=== PATIENT | female | born 1990 | race Caucasian/White ===

== ENCOUNTER 2016-04-02 20:19 | Emergency (ER) | payer BC ==
[~2016-04-02] VITALS: Ht 172.7 cm; Wt 79.4 kg
[2016-04-02 20:26] VITALS: TEMP 36.7; Ht 172.7 cm; Wt 79.4 kg
[2016-04-02] MEDS ORDERED: ASPI81TA28 PO (22:01)
[2016-04-02 22:51] VITALS: BP 105/71; PULSE 64; O2SAT 97
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
== END 2016-04-02 22:56 | disposition home or self-care (01) ==
LOC: C.EDB 20:22 → C.EDD 22:56
DX: S61.251A Open bite of left index finger without damage to nail, initial encounter (principal); Z79.82 Long term (current) use of aspirin; W53.81XA Bitten by other rodent, initial encounter; Y92.000 Kitchen of unspecified non-institutional (private) residence as the place of occurrence of the external cause; Y99.8 Other external cause status

== ENCOUNTER 2018-07-15 05:29 | Inpatient (IN) ==
--- NOTE | 2018-07-14 22:13 | History and Physical Report ---
DATE OF ADMISSION: 07/15/2018 CHIEF COMPLAINT: Planned section. HISTORY OF PRESENT ILLNESS: A 27-year-old 1, para 0 at 39+ weeks estimated gestational age with an EDC of 07/17/2018, who will present in the morning for planned section for breech presentation. The patient underwent an attempt at external cephalic version approximately 2 days ago that was unsuccessful. She is found to be roxanne breech earlier this week. She now accepts planned section. She denies any vaginal bleeding, leaking, or pain. She reports good movement. course has been complicated by, 1. GBS positive. 2. Heterozygous factor V Leiden mutation with a plan for hematology from December of 2017 for Lovenox if she has a . The labs include a blood type of A positive, rubella immune, and group B strep positive. OBSTETRIC HISTORY AND GYNECOLOGIC HISTORY: 1. History of positive HPV with colposcopy. No STDs. PAST MEDICAL HISTORY: Heterozygous factor V Leiden. PAST SURGICAL HISTORY: Partial parotidectomy in 2014, tubes in her ears. ALLERGIES: LORABID WHICH LEADS TO HIVES. MEDICATIONS: vitamins, Benadryl, Tylenol, iron, and Claritin. SOCIAL HISTORY: No tobacco, alcohol or street drug use. FAMILY HISTORY: Noncontributory. REVIEW OF SYSTEMS: Per HPI. PHYSICAL EXAMINATION: VITAL SIGNS: Height 5 feet 7 inches, weight 220 pounds. The vital signs are stable. GENERAL: She is a pleasant female, well-developed, well-nourished in no acute distress. HEART: Regular rate and rhythm. LUNGS: Clear to auscultation bilaterally. NECK: Without thyromegaly or lymphadenopathy. ABDOMEN: Soft, gravid, and nontender, term fundal height, breech presentation by ultrasound today. Normal heart tones. EXTREMITIES: No significant edema. ASSESSMENT: 1. A 39+ week intrauterine . 2. breech presentation. 3. Failed external cephalic version. PLAN: The patient will be admitted on 07/15/2018 for planned section for breech presentation. The patient is aware of her preop and postop instructions and course. She is aware of the risks, alternatives, complications, and signed a consent form. We will proceed with primary section in the morning. In the morning, she will have her laboratory testing as well. SONI
[2018-07-15] MEDS ORDERED: CEFAZOLIN 3,000 MG in DEXTROSE 5% 50 ML IV SCH (06:00)
[2018-07-15] MEDS ORDERED: LACTATED RINGER'S 1,000 ML IV SCH ×2 (06:00→06:59)
[2018-07-15] MEDS ORDERED: CITRIC ACID/SODIUM CITRATE 15 ML UDC PO SCH ×2 (06:00)
[2018-07-15 06:32] LABS: Basophils # (auto) 0.01 K/uL (0-0.2); Basophils % (auto) 0.1 %; Eosinophils # (auto) 0.24 K/uL (0-0.5); Eosinophils % (auto) 3.2 %; Hematocrit (blood only) 34.2 % (37-47); Hemoglobin 11.7 g/dL (12.0-16.0); Immature Granulocytes # (auto) 0.03 K/uL (0.00-0.02); Immature Granulocytes % (auto) 0.4 %; Lymphocytes # (auto) 1.54 K/uL (1.2-3.4); Lymphocytes % (auto) 20.8 %; Mean Platelet Volume 11.8 fL (7.4-10.4); Monocytes # (auto) 0.42 K/uL (0.11-0.59); Monocytes % (auto) 5.7 %; Neutrophils # (auto) 5.17 K/uL (1.4-6.5); Neutrophils % (auto) 69.8 %; Platelet Count 183 K/uL (130-400); RDW Coefficient of Variation 13.9 % (11.5-14.5); White Blood Count 7.41 K/uL (4.8-10.8)
[2018-07-15 06:41] LABS: Mean Corpuscular Hgb Conc 34.2 g/dL (32-36)
--- NOTE | 2018-07-15 07:22 | History & Physical Bridge Note ---
Date of Service July 15, 2018 History & Physical Bridge Note I have examined the patient, reviewed the History & Physical and in the interval since the performance of the History & Physical I have noted the following changes of clinical significance: no changes noted
[2018-07-15] MEDS ORDERED: fentaNYL citrate 100 MCG/2 ML VIAL ONE (07:57)
[2018-07-15] MEDS ORDERED: MoRPHine SULFATE PF 1 MG/ML 10 ML AMP/VIAL ONE (07:57)
--- NOTE | 2018-07-15 08:02 | Anesthesiology Consultation ---
Date of Service July 15, 2018 Assessment & Plan (1) Encounter for pre-operative examination: Chart Review Chart Review: Acceptable Risk for Surgery and Patient NOT seen in Pre Admission Testing Consults Requested none History Surgery Operation Date: 07/15/18 07:30 Proposed Procedures p Section in LD - Nanda Flores MD, FACOG Height/Weight Height: 5 ft 8 in Weight: 99.79 kg Allergies Allergy/AdvReac Type Severity Reaction Status Date / Time loracarbef [From Lorabid] Allergy Intermediate Hives Verified 07/13/18 12:35 Medications Home Medications Medication Instructions Recorded Confirmed Last Taken acetaminophen [Tylenol] 325 mg PO QID PRN 07/12/18 07/13/18 Unknown diphenhydramine HCl [Benadryl] 25 mg PO TID PRN 07/12/18 07/13/18 07/11/18 ferrous sulfate 325 mg PO DAILY 07/12/18 07/13/18 07/11/18 loratadine [Claritin] 10 mg PO DAILY 07/12/18 07/13/18 07/11/18 vit-iron fum-folic ac 1 tab PO DAILY 07/12/18 07/13/18 07/11/18 [ Vitamin] ranitidine HCl 150 mg PO DAILY PRN 07/13/18 07/13/18 Unknown Active Medications Generic Name Dose Route Start Last Admin Trade Name Freq PRN Reason Stop Dose Admin Lactated Ringer's 1,000 mls @ 999 mls/hr 07/16/18 06:00 07/15/18 05:45 Lr IV 07/16/18 07:00 999 mls/hr .Q1H1M TIMOTHY Administration NPO Date Last Intake of Fluids: 07/14/18 Time Last Intake of Fluids: 22:00 Date Last Intake of Solids: 07/14/18 Time Last Intake of Solids: 21:00 Past Medical History Medical History Asthma EXERCISE INDUCED A CHILD (NO CURRENT PROBLEMS) GBS (group B Streptococcus carrier), +RV culture, 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 Heterozygous factor V Leiden mutation Exercise / Class Metabolic Activity II 4-5 Yardwork/Stairs/Walk up hill Past Family History Family History Father Family hx of colon cancer Past Surgical History Surgical History History of placement of ear tubes Hx of parotidectomy CYST REMOVED (BENIGN) Past Anesthesia History No Hx of Anesthesia Complications and No Family Hx of Anesthesia Complications History of PONV No Hx of PONV and No Hx of Motion Sickness Social History Smoking Status: Never smoker Do You Dip or Chew Tobacco: No Hx Alcohol Use: No Hx Substance Use: No substance use type: does not use Physical Exam Vital Signs Last Vital Signs Temp 36.5 C 07/15/18 05:39 Pulse 93 H 07/15/18 07:56 Resp 18 07/15/18 07:30 BP 129/79 07/15/18 05:37 Pulse Ox 100 07/15/18 07:56 Testing Laboratory Results 07/15/18 06:19 07/15/18 06:19 Blood Type A Positive Antibody Screen NEGATIVE
[2018-07-15] MEDS ORDERED: OXYTOCIN 10 UNITS/ML VIAL ONE ×3 (08:08)
[2018-07-15] MEDS ORDERED: NALOXONE HCL 1 MG in SODIUM CHLORIDE 0.9% 1000ML 1,000 ML IV PRN (08:24)
[2018-07-15] MEDS ORDERED: MoRPHine SULFATE 2 MG/ML CARP IV PRN (08:24)
[2018-07-15] MEDS ORDERED: LACTATED RINGER'S 500 ML IV PRN (08:24)
[2018-07-15] MEDS ORDERED: DiphenhydrAMINE HCL 50 MG/ML VIAL IV PRN ×2 (08:24→09:44)
[2018-07-15] MEDS ORDERED: MoRPHine SULFATE PF 1 MG/ML 10 ML AMP/VIAL INT SPINAL ONE (08:24)
[2018-07-15] MEDS ORDERED: ONDANSETRON INJ 2 MG/ML 2 ML VIAL IV PRN (08:24)
[2018-07-15] MEDS ORDERED: ePHEDrine sulfate 50 MG/ML AMP IV PRN (08:24)
[2018-07-15] MEDS ORDERED: NALBUPHINE HCL INJ 10 MG/ML AMP IV PRN (08:24)
[2018-07-15] MEDS ORDERED: NALOXONE HCL 0.4 MG/1 ML VIAL/CARP IV PRN (08:24)
[2018-07-15] MEDS ORDERED: NALOXONE HCL 0.08 MG in SYRINGE 1.8 ML IV PRN (08:24)
[2018-07-15] MEDS ORDERED: DC INTRASPINAL MORPHINE SCH (08:30)
[2018-07-15] MEDS ORDERED: SODIUM CHLORIDE 0.9% 1000ML 1,000 ML IV SCH (08:30)
[2018-07-15] MEDS ORDERED: NO NARCOTICS OR SEDATIVES SCH (08:30)
[2018-07-15] MEDS ORDERED: PHENYLEPHRINE 100MCG/ML 5ML SYR ONE (08:37)
--- NOTE | 2018-07-15 09:07 | Post Operative Brief Note ---
Immediate Post Op Note v1 Date of Surgery July 15, 2018 Pre & Post Diagnosis Operation Date: 07/15/18 07:30 Pre-Op Diagnosis: 1. A 39+ week intrauterine . 2. breech presentation. 3. Failed external cephalic version. Post-Op Diagnosis: same as pre-op Procedure Operation Date: 07/15/18 07:30 Actual Procedures p Primary Low Transverse Section in for breech presentation, delivery of live male child at 0833 - Nanda Flores MD, FACOG Surgeon Nanda Flores MD, FACOG Supervisor Education Divya Estimated Blood Loss 500 Findings Consistent with Post-Op Diagnosis viable male apgars 9,9, weight 9# 2 oz. normal uterus tubes and ovaries bilaterally, external uterus with slight heart shape but cavity normal. Fluids 1200 Drains Hurtado Catheter (applied after anesthesia) Anesthesia Type Spinal Complications none Disposition Accompanied Patient To Recovery: No Disposition: L&D
--- NOTE | 2018-07-15 09:21 | Anesthesiology Progress Note ---
Date of Service July 15, 2018 Anesthesia Post Procedure Vital Signs Vital Signs: Temp Pulse Resp BP Pulse Ox 07/15/18 09:19 76 100 07/15/18 09:15 81 108/65 07/15/18 09:14 80 100 07/15/18 07:56 93 H 100 07/15/18 07:54 82 91 07/15/18 07:51 89 100 07/15/18 07:46 82 99 07/15/18 07:41 83 100 07/15/18 07:30 18 07/15/18 05:39 36.5 C 18 07/15/18 05:37 89 129/79 Transfer of Care Handoff Completed per policy Notes Mental Status: alert / awake / arousable Patient Amnestic to Procedure: Yes Nausea / Vomiting: adequately controlled Pain: adequately controlled Airway Patency, RR, SpO2: stable & adequate BP & HR: stable & adequate Hydration State: stable & adequate Neuraxial Anesthesia: was administered and sensory block is resolving Anesthetic Complications: no major complications apparent and Pt Satisfied with anesthetic care
--- NOTE | 2018-07-15 09:40 | Operative Report ---
DATE OF OPERATION: 07/15/2018 PREOPERATIVE DIAGNOSES: 1. A 39-week intrauterine . 2. breech presentation. 3. Failed external cephalic version. POSTOPERATIVE DIAGNOSES: 1. A 39-week intrauterine . 2. breech presentation. 3. Failed external cephalic version. PROCEDURE: Primary low transverse section. SURGEON: Nanda Flores MD. ACCOUNTS PAYABLE ANALYST: Elisabet Stokes MD INTRAVENOUS FLUIDS: 1200 mL. ESTIMATED BLOOD LOSS: 500 mL. ANESTHESIA: Spinal with Duramorph. FINDINGS: Viable male , Apgars 9 and 9, weight 9 pounds 2 ounces. Uterus with a small sweetheart shape externally, but internal cavity palpated to be normal. Normal tubes and ovaries bilaterally. INDICATIONS: A 27-year-old 1, para 0 at 39+ weeks who presents for planned section due to breech presentation. Approximately 2 days ago, she did try an attempted external cephalic version and this was unsuccessful. She is now ready for her section. She does have a history of heterozygosity to factor V Leiden and we will plan Lovenox when appropriate. DESCRIPTION OF PROCEDURE: The patient was taken to the operating room and identified. Adequate spinal anesthesia was obtained, she was placed in the supine position with leftward tilt and prepped and draped in the usual sterile fashion. The knife was used to create a Pfannenstiel skin incision that was carried down to underlying layer of fascia. The fascia was nicked in the midline and this opening was extended laterally using Mariscal scissors. Milli clamps were placed in the superior and inferior aspects of the fascial incision, tenting it upwards and the underlying rectus muscles were dissected off of the overlying fascia both sharply and bluntly using Mariscal scissors. The rectus muscles were bluntly in the midline and the peritoneal cavity was bluntly entered into. This opening was stretched. A bladder blade was placed. The vesicouterine peritoneum was grasped with a Marry clamp and elevated. It was opened up into sharply and extended laterally and the bladder flap was created digitally. The bladder blade was replaced. A knife was used to create a hysterotomy that was then stretched. The amniotic sac was ruptured. The production drilling machine operator's hand was placed through the hysterotomy and the buttocks was elevated. The bladder blade was removed. With fundal pressure, the buttocks was delivered. The torso was then delivered with the legs and the arms were swept across the anterior midline. The head was flexed and delivered. The cord was clamped, and the nose and mouth were bulb suctioned. The cord was then doubly clamped and cut. The was taken to the awaiting pediatricians. Cord blood was obtained. Placenta was manually expressed. Uterus exteriorized and cleared of all clots and debris. The hysterotomy was reapproximated using 0 Vicryl in a running interlocking fashion followed by second imbricating layer for excellent hemostasis. A bleeding site in the midline was stitched with a [id number] of 2-0 Vicryl for excellent hemostasis. The pelvis was irrigated. The uterus was returned to the abdomen. The gutters were cleared of all clots and debris. The fascia was reapproximated in a running fashion using 0 Vicryl. The subcutaneous fat was copiously irrigated. The subcutaneous tissue was reapproximated using 2-0 chromic and the skin was closed in a subcuticular fashion using 4-0 Vicryl. All sponge, lap, needle counts were correct x2. The patient returned to recovery room in stable condition. I attest to the content of the Intraoperative Record and any orders documented therein. Any exception s are noted below.
[2018-07-15] MEDS ORDERED: HYDROCORTISONE ACETATE 25 MG SUPP PR PRN (09:44)
[2018-07-15] MEDS ORDERED: DIPHTHERIA/TETANUS/PERTUSSIS 0.5 ML SYR/VIAL IM ONE (09:44)
[2018-07-15] MEDS ORDERED: SUPERCREAM 0.870% 15 GM JAR EXT PRN (09:44)
[2018-07-15] MEDS ORDERED: BENZOCAINE 20% AER SPR 82.5 GM CAN EXT PRN (09:44)
[2018-07-15] MEDS: OXYTOCIN 20 UNITS in LACTATED RINGER'S 1,000 ML IV SCH ×2 (10:00→18:16)
[2018-07-15] MEDS: KETOROLAC 30 MG/ML VIAL IV PRN ×2 (10:42→23:40)
[2018-07-15] MEDS: SIMETHICONE 80 MG CHEW PO SCH ×3 (14:35→21:14)
[2018-07-15 15:29] LABS: Partial Thromboplastin Ratio 1.1; Partial Thromboplastin Time 29.6 Seconds (21.0-31.0); Prothrombin Time 10.2 Seconds (9.0-12.0)
[2018-07-15] MEDS: DOCUSATE SODIUM 100 MG CAP PO SCH (21:14)
[2018-07-16] MEDS ORDERED: KETOROLAC 30 MG/ML VIAL IV PRN (02:25)
[2018-07-16] MEDS ORDERED: OXYCODONE/ACETAMINOPHEN 5mg/325mg TAB PO PRN (02:25)
[2018-07-16] MEDS ORDERED: PROMETHAZINE HCL 25 MG in SODIUM CHLORIDE 0.9% 50 ML IV PRN (02:25)
[2018-07-16] MEDS ORDERED: MEPERIDINE HCL 50 MG/ML CARP IV PRN (02:25)
[2018-07-16] MEDS ORDERED: ONDANSETRON INJ 2 MG/ML 2 ML VIAL IV PRN (02:25)
[2018-07-16] MEDS ORDERED: LACTATED RINGER'S 1,000 ML IV SCH (06:00)
--- NOTE | 2018-07-16 06:50 | Obstetrical Progress Note ---
Date of Service <Paul Gaspar MD - Last Filed: 07/16/18 06:50> July 16, 2018 Assessment & Plan <Paul Gaspar MD - Last Filed: 07/16/18 06:50> (1) delivery delivered: Nanette Bueno is a 27yo who presented at 39+ for scheduled c/s for breech presentation now POD#1 - GBS+, blood type A+, RI - Feels well today. Eating well, ambulating well. Has not voided yet, campos removed one hour ago. - well without difficulty - Surgical incision well healing - Pain well controlled with ibuprofen 600mg Q4H PRN. - Will start enoxaparin 40mg subQ this morning for factor V carrier status, will require prophylactic dosing for at least one month. - Routine post-op care - After discharge will have [address] Flores. Subjective <Paul Gaspar MD - Last Filed: 07/16/18 06:50> Ambulation: ambulating normally Voiding: voiding difficulty (campos removed one hour ago, has not voided yet) Passing Gas:: Yes Diet Tolerance:: regular diet Lochia:: Moderate Feeding Type:: breast feeding Current Pain Level(1-10): 3 Review of Systems Denies fever, chills, sweats Denies shortness of breath, difficulty breathing, chest pain, palpitations, chest pressure. Denies breast pain. Denies dysuria. Denies headache. Physical Exam <Paul Gaspar MD - Last Filed: 07/16/18 06:50> General: Alert, oriented. No acute distress. Cardiac: Regular rate and rhythm, no murmurs/rubs/gallops. Respiratory: Clear to auscultation anterior and posteriorly, no wheezes/rales/rhonchi. No increased work of breathing. Symmetrical chest rise. No respiratory distress. Abdomen: Soft, nontender, nondistended. Bowel sounds present. Surgical dressing removed. Surgical incision clean, dry, intact without dehiscence, warmth, hematoma, discharge, or swelling. Uterus: Uterine fundus firm, palpable at-1cm below umbilicus. Lower Extremities: No lower extremity edema or swelling. No deep calf pain. Lewis's negative bilaterally. Results & Data <Paul Gaspar MD - Last Filed: 07/16/18 06:50> Vital Signs (Past 12 Hours) Vital Signs Temp Pulse Resp BP Pulse Ox 07/16/18 04:00 36.7 C 90 18 130/78 07/16/18 02:00 18 99 07/16/18 01:30 20 97 07/16/18 00:30 18 99 07/15/18 23:30 36.4 C L 78 20 112/64 99 07/15/18 22:22 18 98 07/15/18 21:20 18 99 07/15/18 20:15 18 99 07/15/18 19:25 37.0 C 81 18 113/76 100 <Erika Anton MD, FACOG - Last Filed: 07/16/18 07:57> Co-Signing Physician Notes Resident Physician Supervision Note: I interviewed and examined the patient. Discussed with Dr. Gaspar and agree with findings and plan as documented in the note. Any exceptions or clarifications are listed here: Doing well. routine PPD 1 . Start lovenox prophylaxis today. Documented By: Erika Anton MD, FACOG Resident Activity Tracking <Paul Gaspar MD - Last Filed: 07/16/18 06:50> Resident Involvement: Resident Care Provided Care Provided: Adult Hospital Medicine
[2018-07-16 07:34] LABS: Basophils # (auto) 0.01 K/uL (0-0.2); Basophils % (auto) 0.1 %; Eosinophils # (auto) 0.16 K/uL (0-0.5); Hematocrit (blood only) 31.9 % (37-47); Hemoglobin 11.1 g/dL (12.0-16.0); Immature Granulocytes # (auto) 0.02 K/uL (0.00-0.02); Immature Granulocytes % (auto) 0.2 %; Lymphocytes # (auto) 0.94 K/uL (1.2-3.4); Lymphocytes % (auto) 11.5 %; Mean Corpuscular Hgb Conc 34.8 g/dL (32-36); Mean Corpuscular Volume 89.9 fL (80-100); Mean Platelet Volume 10.9 fL (7.4-10.4); Monocytes # (auto) 0.46 K/uL (0.11-0.59); Monocytes % (auto) 5.6 %; Neutrophils % (auto) 80.6 %; Platelet Count 168 K/uL (130-400); RDW Coefficient of Variation 13.9 % (11.5-14.5); RDW Standard Deviation 45.8 fL (36.4-46.3); Red Blood Count 3.55 M/uL (4.2-5.4); White Blood Count 8.19 K/uL (4.8-10.8)
[2018-07-16] MEDS ORDERED: HYDROCORTISONE 1% CRM 30 GM TUBE EXT PRN (07:54)
[2018-07-16] MEDS: DOCUSATE SODIUM 100 MG CAP PO SCH ×2 (08:12→20:24)
[2018-07-16] MEDS: PRENATAL VITAMIN 1 TAB PO SCH (08:12)
[2018-07-16] MEDS: IBUPROFEN 600 MG TAB PO PRN ×3 (08:13→20:24)
[2018-07-16] MEDS: SIMETHICONE 80 MG CHEW PO SCH ×3 (08:14→20:25)
[2018-07-16 08:18] LABS: Creatinine Clr Calc Pharmacy 205.1 ml/min; Est GFR (African American) > 150.0; Est GFR (Non-African American) 130.8
[2018-07-16] MEDS: ENOXAPARIN INJ 40 MG/0.4 ML SYR SQ SCH (09:00)
--- NOTE | 2018-07-16 10:12 | Anesthesiology Progress Note ---
Date of Service July 16, 2018 Anesthesia Post Procedure Vital Signs Vital Signs: Temp Pulse Pulse Pulse Resp BP BP 07/16/18 08:45 36.6 C 90 20 07/16/18 04:00 36.7 C 90 18 07/16/18 02:00 18 07/16/18 01:30 20 07/16/18 00:30 18 07/15/18 23:30 36.4 C L 78 20 07/15/18 22:22 18 07/15/18 21:20 18 07/15/18 20:15 18 07/15/18 19:25 37.0 C 81 18 07/15/18 18:15 18 07/15/18 17:15 18 07/15/18 16:05 36.9 C 75 18 07/15/18 15:15 18 07/15/18 14:15 36.8 C 75 20 07/15/18 13:15 36.5 C 77 18 122/75 07/15/18 12:00 37.4 C 78 16 126/64 07/15/18 11:15 37.2 C 82 18 114/76 07/15/18 10:59 84 07/15/18 10:54 79 07/15/18 10:50 37.1 C 78 18 07/15/18 10:49 78 07/15/18 10:47 77 122/68 07/15/18 10:44 76 07/15/18 10:39 83 07/15/18 10:37 88 07/15/18 10:34 87 07/15/18 10:29 81 07/15/18 10:24 80 07/15/18 10:19 82 07/15/18 10:16 82 121/72 07/15/18 10:15 36.5 C 76 16 07/15/18 10:14 90 BP Pulse Ox 07/16/18 08:45 112/71 98 07/16/18 04:00 130/78 07/16/18 02:00 99 07/16/18 01:30 97 07/16/18 00:30 99 07/15/18 23:30 112/64 99 07/15/18 22:22 98 07/15/18 21:20 99 07/15/18 20:15 99 07/15/18 19:25 113/76 100 07/15/18 18:15 100 07/15/18 17:15 100 07/15/18 16:05 125/68 100 07/15/18 15:15 100 07/15/18 14:15 124/74 100 07/15/18 13:15 100 07/15/18 12:00 99 07/15/18 11:15 98 07/15/18 10:59 07/15/18 10:54 07/15/18 10:50 07/15/18 10:49 100 07/15/18 10:47 07/15/18 10:44 07/15/18 10:39 100 07/15/18 10:37 94 07/15/18 10:34 07/15/18 10:29 100 07/15/18 10:24 94 07/15/18 10:19 100 07/15/18 10:16 07/15/18 10:15 100 07/15/18 10:14 98 Pain Intensity Lower Abdomen: Pain Intensity: 3 Notes Mental Status: alert / awake / arousable and participated in evaluation Nausea / Vomiting: adequately controlled Pain: adequately controlled Airway Patency, RR, SpO2: stable & adequate BP & HR: stable & adequate Hydration State: stable & adequate Neuraxial Anesthesia: was administered and sensory block resolved Anesthetic Complications: no major complications apparent and Pt Satisfied with anesthetic care Notes: Pt denies headache at this time.
[2018-07-17] MEDS: IBUPROFEN 600 MG TAB PO PRN ×4 (00:15→15:21)
[2018-07-17 06:26] LABS: Hematocrit (blood only) 31.6 % (37-47); Hemoglobin 10.7 g/dL (12.0-16.0)
--- NOTE | 2018-07-17 07:53 | Obstetrical Progress Note ---
Date of Service July 17, 2018 Assessment & Plan (1) delivery delivered: doing well, stable, , Subjective Ambulation: ambulating normally Voiding: no voiding problems Passing Gas:: Yes Diet Tolerance:: regular diet Lochia:: Small Feeding Type:: breast feeding pain well controlled. aware she needs to use lovenox for 6 wks. Physical Exam Constitutional WD/WN, vitals as above Respiratory normal respiratory effort, lungs clear to auscultation Cardiovascular Rate/Rhythm: regular rate and regular rhythm Gastrointestinal (Abdomen) ff 2 down, incision c/d/i Musculoskeletal nt calves Results & Data Vital Signs (Past 12 Hours) Vital Signs Temp Pulse Resp BP 07/17/18 00:10 36.6 C 72 18 120/71
[2018-07-17] MEDS: SIMETHICONE 80 MG CHEW PO SCH (08:52)
[2018-07-17] MEDS: PRENATAL VITAMIN 1 TAB PO SCH (08:52)
[2018-07-17] MEDS: DOCUSATE SODIUM 100 MG CAP PO SCH (08:53)
[2018-07-17] MEDS: ENOXAPARIN INJ 40 MG/0.4 ML SYR SQ SCH (08:54)
--- NOTE | 2018-07-17 22:35 | Discharge Summary ---
Date of Service Day of admission: July 15, 2018. Day of discharge: July 17, 2018 Admission HPI Per Admitting Provider Admission diagnoses: 1. 39 week intrauterine 2. breech presentation 3. Failed external cephalic version Discharge diagnoses: same. Discharge Data Consultations 07/15/18 05:59 Consult Anesthesiology Stat Procedures Performed Operation Date: 07/15/18 07:30 Actual Procedures p Primary Low Transverse Section, delivery of live male child at 0833 - Nanda Flores MD, [facility] Course (1) 39 weeks gestation of : (2) Factor V Leiden mutation affecting : (3) Breech presentation of fetus: 27yo at 39+ weeks ega who presented to L&D on day of admission for planned section. The baby was found to breech earlier in the week and patient attempted external cephalic version that was unsucessful. She now presents for planned section. The above procedure was performed without incident. The patient's postoperative course and recovery was unremarkable. On her pod #2 she was stable for discharge home and desired discharge. Her pain was well controlled on oral medications. She was voiding and ambulating without difficulty and eating a regular diet. She was her . She had discharge instructions reviewed and due to her Factor V Leiden history, heterozygote, was planned to have 6weeks of postoperative lovenox prophylaxis. S he had undergone a hematology consult during the that recommended this treatment if she underwent section. She was to followup in 6 weeks for checkup.
== END 2018-07-17 17:15 | disposition home or self-care (01) | DRG 787 ==
LOC: 4S1 05:29 → EDSTATUS 07:30 → 4N 11:23

== ENCOUNTER 2021-08-29 06:08 | Inpatient (IN) ==
--- NOTE | 2021-08-25 11:44 | History & Physical Report ---
Date of Service August 25, 2021 Assessment & Plan (1) 39 weeks gestation of : (2) Failed external cephalic version: (3) malpresentation: (4) Previous delivery affecting , antepartum: Plan Patient to be admitted on wednesday08/29/21. Currently planning repeat c/s due to persistent breech presentation and failed ECV. Unclear status at this time if ECV attempt to be repeated after consent, as will be determined based on favorability of the maternal cervix for induction. If cervix unfavorable the current thought is to not attempt ecv under epidural and instead proceed with the repeat c/s. Patient is prepared for this "to be determined" management as it is her who desires strongly but realizes limitations in her scenario. Collaboration with involved physicians and the patient has taken place. C/S consent reviewed and signed by patient. Routine preop, postop instructions and course reviewed. Risks, benefits and complications reviewed. History of Present Illness Chief Complaint: planned c/s if persistent breech Primary Care Provider: NO PCP 30yo at 39+wks penny presents to L&D for planned c/s if still persistent breech. She had attempted ECV but that failed. She was considering repeat attempt if cervix favorable on day of planned c/s under epidural but that was to be determi paulo at visit before planned c/s date. No labor s/sx. PNC c/b1. prior c/s for breech, desires , persistent breech thus far with this 2. +gbs 3. heterozygous factor V leiden(heterozygote)--plan 6wk pp lovenox if delivery by c/s (past was treated with 40mg SQ daily) 4. Sister with PFO-- echo wnl PNL rh pos, ri, gbs pos OBH: prior c/s as noted GYNH: nl paps no stds Allergies Allergy/AdvReac Type Severity Reaction Status Date / Time loracarbef [From Lorabid] Allergy Intermediate Hives Verified 08/26/21 08:19 Home Medications Medication Instructions Recorded Confirmed Type acetaminophen 325 mg tablet 325 mg PO QID PRN Pain, Moderate 07/12/18 08/26/21 History (Tylenol) diphenhydramine HCl 25 mg capsule 25 mg PO TID PRN Allergy Symptoms 07/12/18 08/26/21 History (Benadryl) vitamins-iron fumarate 27 1 tab PO QAM 07/12/18 08/26/21 History mg iron-folic acid 0.8 mg tablet ( Vitamin) breast pump #1 ea 05/12/21 08/26/21 Rx lactobacillus combination no.9 4 4 mmu cells PO QAM 06/16/21 08/26/21 History billion cell capsule (Adult 50 Plus Probiotic) calcium carbonate 200 mg calcium 200 mg PO QID 08/26/21 08/26/21 History (500 mg) chewable tablet (Tums) cetirizine 10 mg capsule (Zyrtec) 10 mg PO DAILY 08/26/21 08/26/21 History fluticasone propionate 50 1 spray intranasal BID 08/26/21 08/26/21 History mcg/actuation nasal spray,suspension Patient History Medical History Asthma EXERCISE INDUCED A CHILD (NO CURRENT PROBLEMS) Factor 5 Leiden mutation, 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 Surgical History H/O section x1 - breach History of placement of ear tubes ~ 1 year old Hx of parotidectomy CYST REMOVED (BENIGN) - right side Family History Father Family hx of colon cancer Aneurysm Aunt Breast cancer Colorectal cancer Aneurysm age 72 aortic aneurysm Mother Factor 5 Leiden mutation, heterozygous Sister Factor 5 Leiden mutation, heterozygous PFO with atrial septal aneurysm Denies family history of Ovarian cancer Social History Smoking Status: Never smoker Second Hand Exposure: No; Hx Alcohol Use: Yes (prior to ) Alcohol type: wine Hx Substance Use: No Preferred Language: Romanian Communication Ability: Effective Hay Buckler Required: No Beliefs That Will Affect Care: None marital status: marital status details: Nayeli Ximena (41) [phone] Current Living Situation: Spouse, Parent and Family Current Living Situation Comment: lives with spouse, son, dog current occupational status: employed current occupation: [employer] Feels Safe at Home: Yes Assistive Devices: Contacts and Glasses Review of Systems as per Subjective / HPI Physical Exam Constitutional: WD/WN, vitals as above Respiratory: normal respiratory effort, lungs clear to auscultation Cardiovascular: Rate/Rhythm: regular rate and regular rhythm Gastrointestinal (Abdomen): soft gravid nt Neurologic: grossly normal Psychiatric: A+Ox3, euthymic affect Coding Level of Care Code None Diagnoses 39 weeks gestation of Z3A.39 Failed external cephalic version O32.9XX0 malpresentation O32.9XX0 Previous delivery affecting , antepartum O34.219
--- NOTE | 2021-08-26 08:57 | Anesthesiology Consultation ---
Date of Service August 26, 2021 Assessment & Plan (1) Encounter for pre-operative examination: COVID screening: Per assessment on 08/26: No known COVID-19 positive contacts or current COVID-19 related symptoms. Travel screen negative. Patient vaccinated. Surgeon arranging preop COVID testing. Awaiting results. Chart Review Chart Review: entry level management initiated History Surgery Operation Date: 08/29/21 07:30 Proposed Procedures p Section in LD (Delivery of Baby Through Abdominal Incision) - Nanad Flores MD, FACOG Height/Weight Height: 5 ft 8 in Weight: 102.512 kg Allergies Allergy/AdvReac Type Severity Reaction Status Date / Time loracarbef [From Lorabid] Allergy Intermediate Hives Verified 08/26/21 08:19 Medications Home Medications Medication Instructions Recorded Confirmed Last Taken acetaminophen 325 mg tablet 325 mg PO QID PRN Pain, Moderate 07/12/18 08/26/21 Unknown (Tylenol) diphenhydramine HCl 25 mg capsule 25 mg PO TID PRN Allergy Symptoms 07/12/18 08/26/21 07/11/18 (Benadryl) vitamins-iron fumarate 27 1 tab PO QAM 07/12/18 08/26/21 07/11/18 mg iron-folic acid 0.8 mg tablet ( Vitamin) breast pump #1 ea 05/12/21 08/26/21 Unknown lactobacillus combination no.9 4 4 mmu cells PO QAM 06/16/21 08/26/21 Unknown billion cell capsule (Adult 50 Plus Probiotic) calcium carbonate 200 mg calcium 200 mg PO QID 08/26/21 08/26/21 Unknown (500 mg) chewable tablet (Tums) cetirizine 10 mg capsule (Zyrtec) 10 mg PO DAILY 08/26/21 08/26/21 Unknown fluticasone propionate 50 1 spray intranasal BID 08/26/21 08/26/21 Unknown mcg/actuation nasal spray,suspension Past Medical History Medical History Asthma EXERCISE INDUCED A CHILD (NO CURRENT PROBLEMS) Factor 5 Leiden mutation, 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 Past Family History Family History Father Family hx of colon cancer Aneurysm Aunt Breast cancer Colorectal cancer Aneurysm age 72 aortic aneurysm Mother Factor 5 Leiden mutation, heterozygous Sister Factor 5 Leiden mutation, heterozygous PFO with atrial septal aneurysm Denies family history of Ovarian cancer Past Surgical History Surgical History H/O section x1 - breach History of placement of ear tubes ~ 1 year old Hx of parotidectomy CYST REMOVED (BENIGN) - right side Social History Smoking Status: Never smoker Do You Dip or Chew Tobacco: No Hx Alcohol Use: Yes (prior to ) Alcohol type: wine alcohol intake frequency: a few times a week Hx Substance Use: No substance use type: does not use Lab Results Anesthesia Preop Results Results Anesthesia Widget: WBC 10.05 K/uL (4.8-10.8) 08/06/21 Hgb 12.3 g/dL (12.0-16.0) 08/06/21 Hct 35.6 % (37-47) L 08/06/21 Plt 252 K/uL (130-400) 08/06/21 Blood Type A Positive 08/06/21 Antibody Screen NEGATIVE 08/06/21
[~2021-08-29 06:08] MED LIST: ALLERGY Noted to ORDERED Medication SCH; CITRIC ACID/SODIUM CITRATE 15 ML UDC PO SCH; LACTATED RINGER'S 1,000 ML IV SCH
[2021-08-29 06:32] LABS: Basophils # (auto) 0.02 K/uL (0-0.2); Basophils % (auto) 0.2 %; Eosinophils # (auto) 0.27 K/uL (0-0.50); Eosinophils % (auto) 2.6 %; Hematocrit (blood only) 34.7 % (34.1-44.9); Hemoglobin 11.7 g/dl (12.0-16.0); Immature Granulocytes # (auto) 0.05 K/uL (0.00-0.02); Immature Granulocytes % (auto) 0.5 %; Lymphocytes # (auto) 1.81 K/uL (1.2-3.4); Lymphocytes % (auto) 17.4 %; Mean Corpuscular Hemoglobin 30.7 pg (25.0-34.0); Mean Corpuscular Hgb Conc 33.7 g/dL (32.0-36.0); Mean Corpuscular Volume 91.1 fL (80.0-100.0); Mean Platelet Volume 11.6 fL (9.4-12.3); Monocytes # (auto) 0.69 K/uL (0.24-0.82); Monocytes % (auto) 6.6 %; Neutrophils # (auto) 7.56 K/uL (1.4-6.5); Neutrophils % (auto) 72.7 %; Platelet Count 208 K/uL (130-400); RDW Coefficient of Variation 12.6 % (11.5-14.5); RDW Standard Deviation 41.6 fL (36.4-46.3); Red Blood Count 3.81 M/uL (3.93-5.22)
[2021-08-29] MEDS ORDERED: OXYTOCIN 10 UNITS/ML 10ML VIAL ONE (06:48)
[2021-08-29] MEDS ORDERED: fentaNYL citrate 100 MCG/2 ML VIAL ONE (06:49)
[2021-08-29] MEDS ORDERED: MoRPHine SULFATE PF 1 MG/ML 10 ML AMP/VIAL ONE (06:49)
--- NOTE | 2021-08-29 07:11 | History & Physical Bridge Note ---
Date of Service August 29, 2021 History & Physical Bridge Note I have examined the patient, reviewed the History & Physical and in the interval since the performance of the History & Physical I have noted the following changes of clinical significance: no changes noted. breech by us and cervix is closed.
--- NOTE | 2021-08-29 07:24 | Anesthesiology Consultation ---
Date of Service August 29, 2021 Assessment & Plan ASA ASA2 Proposed Anesthesia Anesthesia Type: Spinal Risk / Benefits Reviewed With: PT / POA / Parent / Guardian, Accepts Plan and Informed Consent Obtained History Surgery Operation Date: 08/29/21 08:10 Proposed Procedures p Section (Delivery of Baby Through Abdominal Incision) - Nanda Flores MD, FACOG Height/Weight Height: 5 ft 8 in Weight: 102.512 kg Allergies Allergy/AdvReac Type Severity Reaction Status Date / Time loracarbef [From Lorabid] Allergy Intermediate Hives Verified 08/29/21 07:17 Medications Home Medications Medication Instructions Recorded Confirmed Last Taken acetaminophen 325 mg tablet 325 mg PO QID PRN Pain, Moderate 07/12/18 08/28/21 Unknown (Tylenol) diphenhydramine HCl 25 mg capsule 25 mg PO TID PRN Allergy Symptoms 07/12/18 08/28/21 07/11/18 (Benadryl) vitamins-iron fumarate 27 1 tab PO QAM 07/12/18 08/28/21 07/11/18 mg iron-folic acid 0.8 mg tablet ( Vitamin) breast pump #1 ea 05/12/21 08/28/21 Unknown lactobacillus combination no.9 4 4 mmu cells PO QAM 06/16/21 08/28/21 Unknown billion cell capsule (Adult 50 Plus Probiotic) calcium carbonate 200 mg calcium 200 mg PO QID 08/26/21 08/28/21 Unknown (500 mg) chewable tablet (Tums) cetirizine 10 mg capsule (Zyrtec) 10 mg PO DAILY 08/26/21 08/28/21 Unknown fluticasone propionate 50 1 spray intranasal BID 08/26/21 08/28/21 Unknown mcg/actuation nasal spray,suspension NPO Date Last Intake of Fluids: 08/29/21 Time Last Intake of Fluids: 00:00 Date Last Intake of Solids: 08/29/21 Time Last Intake of Solids: 00:00 Past Medical History Medical History Asthma EXERCISE INDUCED A CHILD (NO CURRENT PROBLEMS) Factor 5 Leiden mutation, 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 Exercise / Class Metabolic Activity II 4-5 Yardwork/Stairs/Walk up hill Past Family History Family History Father Family hx of colon cancer Aneurysm Aunt Breast cancer Colorectal cancer Aneurysm age 72 aortic aneurysm Mother Factor 5 Leiden mutation, heterozygous Sister Factor 5 Leiden mutation, heterozygous PFO with atrial septal aneurysm Denies family history of Ovarian cancer Past Surgical History Surgical History H/O section x1 - breach History of placement of ear tubes ~ 1 year old Hx of parotidectomy CYST REMOVED (BENIGN) - right side Past Anesthesia History No Hx of Anesthesia Complications and No Family Hx of Anesthesia Complications History of PONV No Hx of PONV and No Hx of Motion Sickness Social History Smoking Status: Never smoker Do You Dip or Chew Tobacco: No Hx Alcohol Use: Yes (prior to ) Alcohol type: wine alcohol intake frequency: a few times a week Hx Substance Use: No substance use type: does not use Review of Systems denies fever/cough/ colds/ chest pain/ SOB/ ABDULAZIZ denies ABDULAZIZ Physical Exam Vital Signs Last Vital Signs Pulse 72 08/29/21 07:12 BP 124/81 08/29/21 07:12 ENMT Mouth: no TMJ abnormality and no dentition abnormality Thyromental Distance: > or= 3.5 Finger Breadths Mallampati Class: II Neck neck extension not limited Respiratory normal respiratory effort; no respiratory distress Auscultation: lungs clear to auscultation bilaterally Cardiovascular Rate/Rhythm: regular rate and regular rhythm Neurologic moves all extremities Psychiatric Orientation: alert and oriented x 3 Testing Laboratory Results 08/29/21 06:25
[2021-08-29] MEDS ORDERED: ePHEDrine sulfate 50 MG/ML AMP IV PRN (08:40)
[2021-08-29] MEDS ORDERED: MoRPHine SULFATE PF 1 MG/ML 10 ML AMP/VIAL INT SPINAL ONE (08:40)
[2021-08-29] MEDS ORDERED: LACTATED RINGER'S 500 ML IV PRN (08:40)
[2021-08-29] MEDS ORDERED: NALOXONE HCL 0.4 MG/1 ML VIAL/CARP IV PRN (08:40)
[2021-08-29] MEDS ORDERED: NALOXONE HCL 0.08 MG in SYRINGE 1.8 ML IV PRN (08:40)
[2021-08-29] MEDS ORDERED: ONDANSETRON INJ 2 MG/ML 2 ML VIAL IV PRN (08:40)
[2021-08-29] MEDS ORDERED: NALBUPHINE HCL INJ 10 MG/ML AMP IV PRN (08:40)
[2021-08-29] MEDS ORDERED: diphenhydrAMINE 50 MG/ML VIAL IV PRN (08:40)
[2021-08-29] MEDS ORDERED: NALOXONE HCL 1 MG in SODIUM CHLORIDE 0.9% 1000ML 1,000 ML IV PRN (08:40)
[2021-08-29] MEDS ORDERED: MoRPHine SULFATE 2 MG/ML CARP IV PRN (08:40)
[2021-08-29] MEDS ORDERED: SODIUM CHLORIDE 0.9% 1000ML 1,000 ML IV SCH (08:45)
[2021-08-29] MEDS ORDERED: DC INTRASPINAL MORPHINE SCH (08:45)
[2021-08-29] MEDS ORDERED: NO NARCOTICS OR SEDATIVES SCH (08:45)
[2021-08-29] MEDS ORDERED: DIPHTHERIA/TETANUS/PERTUSSIS 0.5 ML SYR/VIAL IM ONE (08:53)
[2021-08-29] MEDS ORDERED: HYDROCORTISONE ACETATE 25 MG SUPP PR PRN (08:53)
[2021-08-29] MEDS ORDERED: MAGNESIUM HYDROXIDE SUSP 30 ML UDC PO PRN (08:53)
[2021-08-29] MEDS ORDERED: SENNA 8.6 MG TAB PO PRN (08:53)
[2021-08-29] MEDS ORDERED: BENZOCAINE 20% AER SPR 82.5 GM CAN EXT PRN (08:53)
--- NOTE | 2021-08-29 09:10 | Post Operative Brief Note ---
PG Immediate Post Op with CF Date of Surgery August 29, 2021 Pre & Post Diagnosis Operation Date: 08/29/21 08:10 <No data on this case meets the specified criteria> 1. 39 week iup 2. Breech presentation 3. Failed ECV I identified the patient and participated in the time-out.: Yes Procedure Operation Date: 08/29/21 08:10 <No data on this case meets the specified criteria> Repeat Low Transverse Section Surgeon Nanda Flores MD, FACOG Power System Dispatcher Desean Estimated Blood Loss 600 Findings Consistent with Post-Op Diagnosis (viable female, apgars pending, normal uterus, tubes and ovaries bilaterally. true knot in cord, loose. ) Fluids 1000 Specimens Specimen Description: cord blood Drains Hurtado Catheter Anesthesia Type Spinal Complications none Disposition Accompanied Patient To Recovery: No Disposition: L&D
--- NOTE | 2021-08-29 09:51 | Operative Report ---
PG Post Operative Report Pre & Post Diagnosis Operation Date: 08/29/21 08:10 Pre-Op Diagnosis: 1. 39 week iup 2. Breech presentation 3. Failed ECV Post-Op Diagnosis: same I identified the patient and participated in the time-out.: Yes Procedure Operation Date: 08/29/21 08:10 Actual Procedures p Repeat Low Transverse Section (Delivery of Baby Through Abdominal Incision) - Nanda Flores MD, FACOG Surgeon Nanda Flores MD, FACOG Printing Table Worker Desean Estimated Blood Loss 600 Findings Consistent with Post-Op Diagnosis (viable female, apgars pending, normal uterus, tubes and ovaries bilaterally. true knot in cord, loose. ) Fluids 1000 Specimens cord blood Drains campos Anesthesia Type Spinal Complications none Disposition Accompanied Patient To Recovery: No Disposition: L&D Indications 30yo at 39wks penny presents to L&D for planned c/s for persistent breech presentation. She has a history of prior c/s for breech presentation with failed ecv. She trialed ecv with this and it failed. She is ready to proceed with c/s. Description of Procedure The patient was taken to the operating room and identified. After adequate anesthesia was obtained, she was placed in the supine position with a leftward tilt on the operating table and prepped and draped in the usual sterile fashion. A campos catheter had already been placed. The knife was used to create a Pfannensteil skin incision that was carried down to the underlying layer of fascia. The fascia was nicked in the midline and this opening was extended laterally using Mariscal scissors. Milli clamps were placed on the superior and inferior aspect of the fascial incision tenting it upward and the underlying rectus muscles were dissected off the overlying fascia both sharply and bluntly using Mariscal scissors. The rectus muscles were bluntly in the midline. The peritoneal cavity was bluntly entered into. This opening was stretched. The bladder blade was placed. The vesicouterine peritoneum was elevated and opened up into and the bladder flap was created digitally and bladder blade was replaced. The knife was used to create a hysterotomy and this opening was stretched. The operators hand was placed through the hysterotomy and the bladder blade was removed. The buttocks was elevated and with fundal pressure was delivered. With further fundal pressure the body was delivered to the level of the scapulae and the arms were swept across the anterior midline body and the head was flexed and delivered. Delayed cord clamping took place x 30sec and the baby was stimulated and vigorous and crying. The cord was clamped and cut and the was handed off to the awaiting pediatricians. Cord blood was obtained. The placenta was manually expressed. The uterus was exteriorized and cleared of all clots and debris. Dilute IV Pitocin was begun. The uterine tone was improving. The hysterotomy was closed in a running interlocking fashion using 0 Vicryl followed by a second imbricating layer of 0 Vicryl. One bleeding site on right side of hysterotomy was stitched with 2-0 vicryl in figure of eight fashion for excellent hemostasis. The hysterotomy was hemostatic. The pelvis was irrigated. The uterus was returned to the abdomen. The gutters were cleared of all clots and debris. The hysterotomy was reinspected and noted to be hemostatic. The fascia was then closed in running fashion using 0 Vicryl. The subcutaneous fat was copiously irrigated and reapproximated using 2-0 chromic. The skin was closed in a subcuticular fashion using 4-0 Vicryl. At this point the procedure was terminated. The patient was transferred to the re covery room in stable condition. All sponge, lap and needle counts are correct x2. I attest to the content of the Intraoperative Record and any orders documented therein. Any exceptions are noted below. OB Procedure Charges 16449
--- NOTE | 2021-08-29 10:21 | Anesthesiology Progress Note ---
Date of Service August 29, 2021 Anesthesia Post Procedure Vital Signs Vital Signs: Temp Pulse Resp BP Pulse Ox O2 Del Method 08/29/21 09:20 36.5 C 18 98 Room Air 08/29/21 07:15 36.6 C 72 18 124/81 08/29/21 10:18 81 125/69 08/29/21 10:16 77 100 08/29/21 10:11 75 99 08/29/21 10:08 75 125/77 08/29/21 10:06 74 99 08/29/21 10:01 72 99 08/29/21 09:58 72 127/62 08/29/21 09:56 75 97 08/29/21 09:51 76 97 08/29/21 09:48 76 136/67 08/29/21 09:46 76 97 08/29/21 09:41 72 97 08/29/21 09:38 76 145/72 H 08/29/21 09:36 84 96 08/29/21 09:31 78 98 08/29/21 09:28 83 117/77 08/29/21 09:26 87 98 08/29/21 09:22 83 114/70 08/29/21 09:20 73 99 08/29/21 09:18 76 124/74 08/29/21 09:17 79 165/67 H 08/29/21 09:15 75 98 08/29/21 07:12 72 124/81 08/29/21 06:34 75 128/80 Transfer of Care Handoff Completed per policy Notes Mental Status: alert / awake / arousable and participated in evaluation Patient Amnestic to Procedure: Yes Nausea / Vomiting: adequately controlled Pain: adequately controlled Airway Patency, RR, SpO2: stable & adequate BP & HR: stable & adequate Hydration State: stable & adequate Neuraxial Anesthesia: was administered and sensory block is resolving Anesthetic Complications: no major complications apparent and Pt Satisfied with anesthetic care
[2021-08-29] MEDS: OXYTOCIN 20 UNITS in LACTATED RINGER'S 1,000 ML IV SCH ×2 (10:28→18:17)
[2021-08-29] MEDS: KETOROLAC 30 MG/ML VIAL IV PRN ×2 (10:52→20:27)
[2021-08-29] MEDS: SIMETHICONE 80 MG CHEW PO SCH ×3 (13:07→20:27)
[2021-08-29] MEDS: DOCUSATE SODIUM 100 MG CAP PO SCH (20:27)
[2021-08-30] MEDS ORDERED: LACTATED RINGER'S 1,000 ML IV SCH (01:00)
[2021-08-30] MEDS ORDERED: diphenhydrAMINE Capsule 25 MG CAP PO PRN (02:40)
[2021-08-30] MEDS ORDERED: KETOROLAC 30 MG/ML VIAL IV PRN (02:40)
[2021-08-30] MEDS ORDERED: oxyCODONE/ACETAMINOPHEN 5mg/325mg TAB PO PRN (02:40)
[2021-08-30] MEDS ORDERED: PROMETHAZINE HCL 25 MG in SODIUM CHLORIDE 0.9% 50 ML IV PRN (02:40)
[2021-08-30] MEDS ORDERED: ONDANSETRON INJ 2 MG/ML 2 ML VIAL IV PRN (02:40)
[2021-08-30] MEDS ORDERED: MEPERIDINE HCL 50 MG/ML CARP IV PRN (02:40)
[2021-08-30] MEDS ORDERED: diphenhydrAMINE 50 MG/ML VIAL IV PRN (02:40)
[2021-08-30] MEDS: IBUPROFEN 600 MG TAB PO PRN ×5 (03:08→21:23)
--- NOTE | 2021-08-30 06:04 | Obstetrical Progress Note ---
Date of Service <Em MunsonEm Muñoz DO - Last Filed: 08/30/21 06:46> August 30, 2021 Assessment & Plan <Em SEm Muñoz DO - Last Filed: 08/30/21 06:46> (1) Status post section: Plan Hurtado d/c early this morning, do a trial of OOB and ambulation and then progress diet as tolerated <Baldomero Marie MD - Last Filed: 08/30/21 08:08> (1) Status post section: Subjective <Em S. DO Toni - Last Filed: 08/30/21 06:46> Nanette is a 30 y/o female who is POD #1 following delivery at 39 5/7 weeks. She reports feeling well overall this morning. Mild abdominal cramping & pain well managed on analgesics. Voiding. Tolerating meals overnight and able to ambulate some. Is passing gas, but no bowel movement. Has some persistent lochia with some improvement this morning. Currently breast feeding. Review of Systems Denies fever, chills, sweats Denies shortness of breath, difficulty breathing, chest pain, palpitations, chest pressure. Denies breast pain. Denies dysuria. Denies headache or changes in vision. Physical Exam <Em ArpitEm Muñoz DO - Last Filed: 08/30/21 06:46> General: Alert, oriented. No acute distress. Cardiac: Regular rate and rhythm, no murmurs/rubs/gallops. Respiratory: Clear to auscultation bilaterally a/p, no wheezes/rales/rhonchi. No increased work of breathing. Symmetrical chest rise. No respiratory distress. Abdomen: Soft, nontender, nondistended. Bowel sounds present. Uterus: Uterine fundus firm, palpable 2 cm below umbilicus. Lower Extremities: No lower extremity edema or swelling. No deep calf pain. Lewis's negative bilaterally. Results & Data ([facility]) <Em Anaid Muñoz DO - Last Filed: 08/30/21 06:46> Vital Signs (Past 12 Hours) Vital Signs Temp Pulse Resp BP Pulse Ox O2 Del Method 08/30/21 03:00 37.0 C 69 18 117/78 08/30/21 02:00 16 98 08/29/21 22:00 18 99 08/30/21 01:00 16 98 08/30/21 00:00 16 98 08/30/21 00:00 37.1 C 72 16 120/77 98 Room Air 08/29/21 20:30 37.0 C 65 18 122/77 98 Room Air 08/29/21 21:00 16 98 08/29/21 20:00 18 99 08/29/21 19:00 18 98 08/29/21 18:03 16 99 <Baldomero Marie MD - Last Filed: 08/30/21 08:08> Co-Signing Physician Notes Patient seen with resident agree with the above findings and plan. Doing well. Routine care. incision clean dry and intact. Dressing removed.
[2021-08-30] MEDS: SIMETHICONE 80 MG CHEW PO SCH ×4 (07:53→21:24)
[2021-08-30] MEDS: DOCUSATE SODIUM 100 MG CAP PO SCH ×2 (07:53→21:24)
[2021-08-30] MEDS: PRENATAL VITAMIN 1 TAB PO SCH (07:53)
[2021-08-30] MEDS: FERROUS SULFATE 325 MG TAB PO SCH (07:53)
[2021-08-30] MEDS: ENOXAPARIN INJ 40 MG/0.4 ML SYR SQ SCH (07:54)
[2021-08-30 08:19] LABS: Basophils # (auto) 0.01 K/uL (0-0.2); Basophils % (auto) 0.1 %; Eosinophils # (auto) 0.17 K/uL (0-0.50); Hematocrit (blood only) 31.2 % (34.1-44.9); Hemoglobin 10.6 g/dl (12.0-16.0); Immature Granulocytes # (auto) 0.03 K/uL (0.00-0.02); Immature Granulocytes % (auto) 0.4 %; Lymphocytes # (auto) 1.05 K/uL (1.2-3.4); Lymphocytes % (auto) 12.4 %; Mean Corpuscular Hemoglobin 30.5 pg (25.0-34.0); Mean Corpuscular Volume 89.9 fL (80.0-100.0); Mean Platelet Volume 11.3 fL (9.4-12.3); Monocytes % (auto) 5.9 %; Neutrophils # (auto) 6.71 K/uL (1.4-6.5); Neutrophils % (auto) 79.2 %; Platelet Count 173 K/uL (130-400); RDW Coefficient of Variation 12.8 % (11.5-14.5); Red Blood Count 3.47 M/uL (3.93-5.22); White Blood Count 8.47 K/ul (4.8-10.8)
[2021-08-30 08:29] LABS: INR 0.9 (0.9-1.1); Prothrombin Time 9.8 Seconds (9.0-12.0)
[2021-08-30 08:46] LABS: Creatinine Clr Calc Pharmacy 198.4 ml/min; Est GFR (African American) 147.5 ml/min; Est GFR (Non-African American) 127.2 ml/min
[2021-08-30] MEDS ORDERED: bisacodyL 5 MG TABEC PO SCH (20:00)
[2021-08-31] MEDS: IBUPROFEN 600 MG TAB PO PRN ×3 (01:33→09:50)
--- NOTE | 2021-08-31 05:46 | Obstetrical Progress Note ---
Date of Service August 31, 2021 Assessment & Plan (1) Status post section: (2) Heterozygous factor V Leiden mutation: Plan stable, ready for dc, scripts sent yesterday. checked on pa pdmp. lovenox planned for 6wks. reviewed instructions and f/u plan 6wk pp check. Day #:: 2 Subjective Ambulation: ambulating normally Voiding: no voiding problems Passing Gas:: Yes Diet Tolerance:: regular diet Lochia:: Small Feeding Type:: breast feeding no complaints. pain control adequate. desires dc home. aware of lovenox course. Constitutional: + as per Subjective / HPI Physical Exam Constitutional WD/WN, vitals as above Respiratory normal respiratory effort, lungs clear to auscultation Cardiovascular Rate/Rhythm: regular rate and regular rhythm Gastrointestinal (Abdomen) Inspection/Auscultation: abdomen normal to inspection and + abdominal surgical i ncision (c/d/i) Percussion/Palpation: abdomen soft; abdomen nontender fundus firm 2 cm below umbilicus Musculoskeletal nt calves tr edema Neurologic grossly normal Psychiatric A+Ox3, euthymic affect Results & Data ([facility]) Vital Signs (Past 12 Hours) Vital Signs Temp Pulse Resp BP 08/31/21 00:00 98.6 F 67 18 119/79 08/30/21 19:30 98.6 F 67 18 120/79
[2021-08-31 06:05] LABS: Hematocrit (blood only) 31.3 % (34.1-44.9); Hemoglobin 10.5 g/dl (12.0-16.0)
[2021-08-31] MEDS: PRENATAL VITAMIN 1 TAB PO SCH (08:48)
[2021-08-31] MEDS: SIMETHICONE 80 MG CHEW PO SCH (08:48)
[2021-08-31] MEDS: FERROUS SULFATE 325 MG TAB PO SCH (08:48)
[2021-08-31] MEDS: DOCUSATE SODIUM 100 MG CAP PO SCH (08:48)
[2021-08-31] MEDS: ENOXAPARIN INJ 40 MG/0.4 ML SYR SQ SCH (08:49)
[2021-08-31] MEDS ORDERED: bisacodyL 10 MG SUPP PR PRN (08:53)
== END 2021-08-31 11:05 | disposition home or self-care (01) | DRG 787 ==
LOC: 4S1 06:08 → 4E2 11:45 → EDSTATUS 09-08 07:30